=== PATIENT | female | born 1995 | race African-American/Black ===

== ENCOUNTER 2018-11-20 14:08 | Emergency (ER) | payer SELFPAY ==
--- NOTE | 2018-11-20 14:41 | ER Document Report ---
ED General - General Chief Complaint: Vag Bleeding, +preg <12wks Stated Complaint: VAGINAL BLEEDING/CLOTS Time Seen by Provider: 11/20/18 14:34 Primary Care Provider: [facility] [Provider Group] - Follow up tomorrow Notes: Patient is a 23-year-old female, approximately 7 weeks gravid, that presents to the emergency department for chief complaint of vaginal bleeding. Patient states that she was having some vaginal bleeding about 2 weeks ago, was seen at [facility] in [place], and was told that everything looked okay at that time, but she may be having a miscarriage, and should have repeat hCG testing in a few days which she was unable to do, last night she started having more bleeding and passing clots which she had this morning as well so she decided come back to the emergency department to be evaluated. She is had some mild pelvic cramping, but that has since resolved. She denies having any dysuria, hematuria or urinary frequency. Denies any fevers, chills, night sweat s, nausea, vomiting or abdominal pain. She has no other complaints at this time. She reports that her blood type is O+. Past Medical History: Denies chronic medical conditions Past Surgical History: EGD Social History: Admits to occasional alcohol use prior to , and occasional marijuana use prior to . Family History: Reviewed and noncontributory for presenting illness Allergies: Reviewed, see documented allergy list. REVIEW OF SYSTEMS: Other than noted above, the 12 point review of systems was reviewed with the patient and were negative, all pertinent findings are included in the HPI. PHYSICAL EXAMINATION: Vital signs reviewed, nursing noted reviewed. GENERAL: Well-appearing, well-nourished and in no acute distress. HEAD: Atraumatic, normocephalic. EYES: Eyes appear normal, extraocular movements intact, sclera anicteric, conjunctiva are normal. ENT: nares patent, oropharynx clear without exudates. Moist mucous membranes. NECK: Normal range of motion, supple without lymphadenopathy LUNGS: Breath sounds clear to auscultation bilaterally and equal. No wheezes rales or rhonchi. HEART: Regular rate and rhythm without murmurs ABDOMEN: Soft, nontender, normoactive bowel sounds. No rebound, guarding, or rigidity. No masses appreciated. EXTREMITIES: Nontender, good range of motion, no pitting or edema. NEUROLOGICAL: No focal neurological deficits. Moves all extremities spontaneously Motor and sensory grossly intact on exam. PSYCH: Normal mood, normal affect. SKIN: Warm, Dry, normal turgor, no rashes or lesions noted on exposed skin TRAVEL OUTSIDE OF THE [place] IN LAST 30 DAYS: No - Related Data Allergies/Adverse Reactions: No Known Allergies Allergy (Verified 11/20/18 14:10) Past Medical History - Social History Smoking Status: Former Smoker Family History: Reviewed & Not Pertinent - Immunizations Hx Diphtheria, Pertussis, Tetanus Vaccination: Yes Physical Exam - Vital signs Vitals: Temp Pulse Resp BP Pulse Ox 98.4 F 73 16 115/74 100 11/20/18 14:16 11/20/18 14:16 11/20/18 14:16 11/20/18 14:16 11/20/18 14:16 Course - Re-evaluation Re-evalutation: Patient seen and examined vital signs reviewed. Laboratory data and imaging were ordered as appropriate for the patient's presenting symptoms and complaint, with consideration of any critical or life threatening conditions that may be associated with their obtained history and exam as noted above. Results were reviewed when available and demonstrated rising hCG based on what she states was her prior level which was around 2000 a few weeks ago, UA demonstrated blood, without overt signs of urinary tract infection, will send for culture. OB ultrasound demonstrated single live intrauterine , approximately 7 weeks, with a subchorionic hemorrhage. The patient was re-evaluated and was stable Evaluation was most consistent with subchorionic hemorrhage, bleeding in early , patient advised follow-up with [facility], given reassurance for the moment, but did explain to her that it is possible she could still have a miscarriage going forward as it still early in and she understands this. Results were discussed with the patient at this point, after careful consideration I feel that that patient can be discharged from the emergency department, the patient was educated treatments and reasons to return to the emergency department based on their presumed diagnosis as noted above, they were advised to followup with a primary care physician in 2-3 days. Patient was agreeable to plan of care. *Note is created using voice recognition software and may contain spelling, syntax or grammatical errors. Laboratory 11/20/18 11/20/18 15:05 15:05 Beta HCG, Quant [id number] H Total Beta HCG POSITIVE Urine Color RED Urine Appearance CLOUDY Urine pH 9.0 Ur Specific [place] 1.021 Urine Protein 100 H Urine Glucose (UA) NEGATIVE Urine Ketones NEGATIVE Urine Blood LARGE H Urine Nitrite NEGATIVE Urine Bilirubin NEGATIVE Urine Urobilinogen NEGATIVE Ur Leukocyte Esterase MODERATE H Urine WBC (Auto) 86 Urine RBC (Auto) >182 Squamous Epi Cells Auto 47 Amorphous Sediment Auto TRACE Urine Mucus (Auto) OCC Urine Ascorbic Acid NEGATIVE Obstetrics Ultrasound 11/20/18 14:42 IMPRESSION: LIVING INTRAUTERINE . EGA 7 weeks 2 days. Trimester of : First - 0 to 13 weeks. - Vital Signs Vital signs: Temp Pulse Resp BP Pulse Ox 98.5 F 77 16 127/96 H 100 11/20/18 19:29 11/20/18 19:29 11/20/18 19:29 11/20/18 19:29 11/20/18 19:29 - Laboratory Laboratory results interpreted by me: 11/20/18 11/20/18 15:05 15:05 Beta HCG, Quant [id number] H Urine Protein 100 H Urine Blood LARGE H Ur Leukocyte Esterase MODERATE H Discharge - Discharge Clinical Impression: Bleeding in early Subchorionic bleed Qualifiers: Fetus number: single or unspecified fetus Trimester: first trimester Qualified Code(s): O41.8X10 - Other specified disorders of amniotic fluid and membranes, first trimester, not applicable or unspecified Condition: Stable Disposition: HOME, SELF-CARE Instructions: Bleeding During Early ([facility]) Additional Instructions: Please follow-up with the [facility], referral given, call for an appointment. You have what is called a subchorionic bleed, these usually resolve on their own, he may have some residual bleeding, but should resolve over the next 24-48 hours if you continue to have bleeding, or soaking through 1 pad for more than 2 hours, you should return to the emergency department sooner. Referrals: [facility] [Provider Group] - Follow up tomorrow
[2018-11-20 15:38] LABS: AMORPHOUS SEDIMENT,URINE TRACE /HPF; APPEARANCE,URINE CLOUDY; BILIRUBIN,URINE NEGATIVE (NEGATIVE); COLOR,URINE RED; GLUCOSE, URINE NEGATIVE (NEGATIVE); KETONES,URINE NEGATIVE (NEGATIVE); LEUKOCYTE ESTERASE,URINE MODERATE (NEGATIVE); NITRITE,URINE NEGATIVE (NEGATIVE); PROTEIN,URINE 100 mg/dL (NEGATIVE); URINE SPECIFIC GRAVITY 1.021; UROBILINOGEN,URINE NEGATIVE mg/dL (<2.0)
--- NOTE | 2018-11-20 19:09 | RADIOLOGY REPORT (SQ) ---
EXAM DESCRIPTION: U/S OB TRANSVAGINAL W/O DOP COMPLETED DATE/TIME: 11/20/2018 6:55 pm REASON FOR STUDY: vaginal bleeding 7 weeks gravid COMPARISON: None. TECHNIQUE: Transvaginal static and realtime grayscale images acquired of the pelvis. Additional alex cted spectral and color Doppler images recorded. All images stored on PACs. bHCG: Not available CLINICAL DATES: LMP 09/29/2018 7 weeks 3 days LIMITATIONS: 7 weeks 2 days None. FINDINGS: FETUS: Single Living intrauterine . ULTRASOUND EGA: 7 weeks 2 days ULTRASOUND JANEEN: 07/07/2019 EFW: Not applicable less than 20 weeks. CRL: 1.2 cm. FHR: 140 beats per minute. SURVEY: Too early to assess. AMNIOTIC FLUID: Adequate amount. PLACENTA: Not yet developed due to early gestation. SUBCHORIONIC BLEED: Yes SIZE OF BLEED: 1.7 x 1.4 cm. UTERUS: No masses or anomalies. 9.4 x 5.1 x 5.2 cm. CERVICAL LENGTH: 2.8 cm. Closed. RIGHT ADNEXA: Normal ovary with normal vascular flow. 2.5 x 2.6 x 1.4 cm. No adnexal free fluid. No adnexal masses. Ovary not seen. LEFT ADNEXA: Normal ovary with normal vascular flow. No adnexal free fluid. No adnexal masses. FREE FLUID: None. OTHER: No other significant finding. IMPRESSION: LIVING INTRAUTERINE . EGA 7 weeks 2 days. Trimester of : First - 0 to 13 weeks. TECHNICAL DOCUMENTATION: JOB ID: [id number] [employer]- All Rights Reserved Reading location - IP/workstation name: [email or web address]
[2018-11-20 19:33] VITALS: BP 127/96
== END 2018-11-20 19:30 | disposition home or self-care (01) ==
LOC: ER 14:08
DX: O41.8X10 Other specified disorders of amniotic fluid and membranes, first trimester, not applicable or unspecified (principal); O20.9 Hemorrhage in early pregnancy, unspecified; Z3A.01 Less than 8 weeks gestation of pregnancy
CPT/HCPCS: 36415; 76817; 81001; 84702; 87086; 99284

== ENCOUNTER 2020-09-07 15:08 | Emergency (ER) | payer MEDICAID ==
[2020-09-07 15:15] VITALS: BP 137/91
[2020-09-07] MEDS ORDERED: HYDROCODONE/ACETAMINOPHEN 5-325 MG TABLET PO ONE (16:19)
[2020-09-07] MEDS ORDERED: DOCUSATE SODIUM 100 MG CAPSULE PO ONE (16:19)
--- NOTE | 2020-09-07 16:28 | ER Document Report ---
HPI - HPI Patient complains to provider of: Hernia Time Seen by Provider: 09/07/20 15:16 Onset: This morning Onset/Duration: Worse Quality of pain: Achy Pain Level: 4 Context: Patient states that she has had an hernia to her abdomen for some time. Patient states that usually it is able to be reduced although today it is larger than usual and more painful. Patient denies any fever, nausea or vomiting. Patient denies any other complaints. She denies any trauma to the abdomen. Associated Symptoms: denies: Nonproductive cough, Fever, Nausea, Vomiting Exacerbated by: Movement Relieved by: Denies Similar symptoms previously: No Recently seen / treated by doctor: No - ROS ROS below otherwise negative: Yes Systems Reviewed and Negative: Yes All other systems reviewed and negative - CONSTITUTIONAL Constitutional: DENIES: Fever, Chills - RESPIRATORY Respiratory: DENIES: Trouble Breathing, Coughing - GASTROINTESTINAL Gastrointestinal: REPORTS: Abdominal Pain. DENIES: Nausea, Patient vomiting, Black / Bloody Stools - URINARY Urinary: DENIES: Dysuria - DERM Skin Color: Normal Skin Problems: None Past Medical History - General Information source: Patient - Social History Smoking Status: Current Some Day Smoker Drug Abuse: Marijuana Lives with: Spouse/Significant other Family History: Reviewed & Not Pertinent Renal/ Medical History: Denies: Hx Peritoneal Dialysis GI Medical History: Reports: Hx Gastroesophageal Reflux Disease Surgical Hx: Negative - Immunizations Hx Diphtheria, Pertussis, Tetanus Vaccination: Yes Vertical Provider Document - CONSTITUTIONAL Agree With Documented VS: Yes Exam Limitations: No Limitations General Appearance: WD/WN, No Apparent Distress - INFECTION CONTROL TRAVEL OUTSIDE OF THE [place] IN LAST 30 DAYS: No - HEENT HEENT: Atraumatic, Normocephalic - NECK Neck: Normal Inspection, Supple - RESPIRATORY Respiratory: Breath Sounds Normal, No Respiratory Distress - CARDIOVASCULAR Cardiovascular: Regular Rate, Regular Rhythm - GI/ABDOMEN Gastrointestinal: Abdomen Soft, Abdomen Tender - Tenderness to ventral hernia - BACK Back: Normal Inspection - MUSCULOSKELETAL/EXTREMETIES Musculoskeletal/Extremeties: STEFANI COSTA - NEURO Level of Consciousness: Awake, Alert, Appropriate Motor/Sensory: No Motor Deficit - DERM Integumentary: Warm, Dry, No Rash Course - Re-evaluation Re-evalutation: 09/07/20 16:20 Patient placed in Trendelenburg position and gentle pressure was applied to ventral hernia, hernia was reducible and patient's pain symptoms improved after reduction. - Vital Signs Vital signs: Temp Pulse Resp BP Pulse Ox 98.8 F 80 18 137/91 H 100 09/07/20 15:14 09/07/20 15:14 09/07/20 15:14 09/07/20 15:14 09/07/20 15:14 - Laboratory Results Critical Laboratory Results Reviewed: No Critical Results - Radiology Results Critical Radiology Results Reviewed: No Critical Results Discharge - Discharge Clinical Impression: Hernia Condition: Stable Disposition: HOME, SELF-CARE Instructions: Hernia ([facility]), Oral Narcotic Medication ([facility]) Additional Instructions: Return immediately for any new or worsening symptoms: Worsening pain, vomiting, any concerning new symptoms Followup with your primary care provider, call tomorrow to make a followup appointment Follow-up with general surgery for definitive treatment of your hernia Take a stool softener if you are taking pain medication. Prescriptions: Hydrocodone/Acetaminophen [[place] 5-325 mg Tablet] 1 tab PO Q6 PRN #8 tablet PRN Reason: Referrals: [facility] [Provider Group] - Follow up in 1 week
== END 2020-09-07 16:47 | disposition home or self-care (01) ==
LOC: ER 15:08
DX: K43.9 Ventral hernia without obstruction or gangrene (principal); R10.9 Unspecified abdominal pain; F17.200 Nicotine dependence, unspecified, uncomplicated
CPT/HCPCS: 99284; J3490